=== PATIENT | female | born 1950 | race Caucasian/White ===

== ENCOUNTER 2018-03-01 17:42 | Emergency (ER) | payer MEDICARE, OTHER ==
[~2018-03-01] VITALS: Ht 167.6 cm; Wt 60.0 kg
[~2018-03-01 17:42] MED LIST: AMLO2.5T PO; HALO5TAB2 PO; HYDR12.54 PO; LEVO150 PO; SIMV10TA6 PO
[2018-03-01 22:02] VITALS: BP 136/80
== END 2018-03-01 22:14 | disposition home or self-care (01) ==
LOC: EMS 17:43
DX: M25.531 Pain in right wrist (principal); E78.00 Pure hypercholesterolemia, unspecified; I10 Essential (primary) hypertension; E03.9 Hypothyroidism, unspecified; Z59.0 Homelessness; Z88.8 Allergy status to other drugs, medicaments and biological substances; V49.9XXA Car occupant (driver) (passenger) injured in unspecified traffic accident, initial encounter; Y93.89 Activity, other specified; Y92.89 Other specified places as the place of occurrence of the external cause; Y99.8 Other external cause status
CPT/HCPCS: 99284